=== PATIENT | male | born 1950 | race Caucasian/White ===

== ENCOUNTER 2018-08-11 09:52 | Inpatient (IN) ==
[2018-08-11] MEDS ORDERED: ONDANSETRON INJ 2 MG/ML 2 ML VIAL IV STA (10:17)
[2018-08-11] MEDS ORDERED: KETOROLAC TROMETHAMINE 15 MG/ML VIAL IV STA (10:17)
[2018-08-11] MEDS ORDERED: HYDROmorphone INJ 0.5 MG/0.5 ML SYR IV STA (10:17)
[2018-08-11] MEDS ORDERED: SODIUM CHLORIDE 0.9% 1000ML 2,000 ML IV SCH (10:30)
[2018-08-11 10:35] LABS: Basophils # (auto) 0.01 K/uL (0-0.2); Basophils % (auto) 0.1 %; Eosinophils # (auto) 0.02 K/uL (0-0.5); Eosinophils % (auto) 0.2 %; Hematocrit (blood only) 45.9 % (42-52); Immature Granulocytes # (auto) 0.04 K/uL (0.00-0.02); Immature Granulocytes % (auto) 0.3 %; Lymphocytes # (auto) 1.37 K/uL (1.2-3.4); Lymphocytes % (auto) 11.5 %; Mean Corpuscular Hgb Conc 34.9 g/dL (32-36); Mean Corpuscular Volume 92.4 fL (80-100); Monocytes # (auto) 0.51 K/uL (0.11-0.59); Monocytes % (auto) 4.3 %; Neutrophils # (auto) 9.92 K/uL (1.4-6.5); Neutrophils % (auto) 83.6 %; Platelet Count 286 K/uL (130-400); RDW Coefficient of Variation 13.4 % (11.5-14.5); RDW Standard Deviation 45.2 fL (36.4-46.3); Red Blood Count 4.97 M/uL (4.7-6.1); White Blood Count 11.87 K/uL (4.8-10.8)
[2018-08-11 10:52] LABS: Albumin Level 4.1 gm/dl (3.4-5.0); Calcium 9.9 mg/dl (8.5-10.1); Creatinine Clr Calc Pharmacy 83.2 ml/min; Est GFR (African American) 101.4; Est GFR (Non-African American) 87.5; Potassium 4.3 mmol/L (3.5-5.1)
[2018-08-11 10:55] LABS: Albumin Globulin Ratio 1.1 (0.9-2); Bilirubin,Total 0.7 mg/dl (0.2-1); Globulin 3.9 gm/dl (2.5-4.0)
--- NOTE | 2018-08-11 11:21 | CT Scan Report ---
CT abd pelvis wo con CT DOSE: 670.72 mGy.cm HISTORY: Pain. Flank pain. severe abd pain. faint back pain diff then previou TECHNIQUE: Multiaxial CT images of the abdomen and pelvis were performed without contrast. A dose lo wering technique was utilized adhering to the principles of ALARA. COMPARISON STUDY: 07/18/2018 FINDINGS: Lung bases are clear. Liver spleen and pancreas are unremarkable. Kidneys are improved in a ppearance compared to the prior study. Perinephric changes on the left procedure described are no longer present. Ventral hernia is unchanged. There is moderate fluid-filled distention of loops of small bowel within the low central abdomen and left lower quadrant. There is a smooth transition in diameter in the lef t central mid pelvis although an obstructing lesion is not seen. Bladder is midline. Postoperative ch anges consistent with a prior partial sigmoid resection is again noted. There is no evidence for abscess or collection. There is no significant colonic distention. IMPRESSION: 1. Partial distal small bowel obstruction with a transition point within the left central pelvis. 2. Etiology is unclear as there is no evidence for an obstructing lesion. 3. Urinary tracts are now considered normal and improved from the prior study. The above report was generated using voice recognition software. It may contain grammatical, syntax or spelling errors. Electronically signed by: Maurice Cordero M.D. 08/11/2018 11:20 AM
--- NOTE | 2018-08-11 13:01 | History & Physical Report ---
Date of Service August 11, 2018 Assessment & Plan (1) SBO (small bowel obstruction): Likely secondary to adhesions with no transition point identified on CT scan. Consult general surgery in case of need for procedure. He currently appears well without an NG tube. Nausea and pain is controlled with Zofran and Dilaudid, respectively. He has bowel sounds that are present. Continue bowel rest and supportive care. Continue IV fluids while patient is n.p.o. (2) COPD (chronic obstructive pulmonary disease): Stable, not in exacerbation. Actively smoking. Noted to be somewhat hypoxic on exam, however patient does not feel short of breath. Ordered continuous pulse ox the next 24 hours to monitor oxygen status. If he is consistently dropping less than 88 he may qualify for oxygen at home which can be set up prior to discharge. Otherwise, continue daily Spiriva and as needed albuterol. (3) Hyponatremia: Likely related to some hypovolemia secondary to vomiting overnight. Will repeat BMP in a.m. after IV fluids overnight. (4) Smoker: Encouraged to quit, nicotine patch provided. (5) DVT prophylaxis: SCDs to the thigh Full code Disposition-med/surg Ivis Robertson DO [facility] Hospitalist History of Present Illness Chief Complaint: vomiting Primary Care Provider: Pedro Luis Garcia MD 68-year-old man with a history of multiple abdominal surgeries and prior exploratory laparotomy in 2010 with lysis of adhesions presents with frequent vomiting and intolerance of p.o. overnight. He reports having pain that felt like a heartburn yesterday afternoon. He ate an orange and did not think much of it continued to have dinner later that night, and subsequently felt poorly going to bed. He had persistent abdominal pain and began vomiting persistently overnight. He reported some shaking chills and felt feverish, but prior to this onset of abdominal pain had felt normal and well. Review of systems is otherwise normal with no cough, diarrhea, blood per rectum, chest pain, shortness of breath. He was recently seen for a kidney stone which spontaneously passed a couple of weeks ago. He did report making lifestyle changes with respect to diet but is not on any fad diets at this time. He merely cuts out the large amount of sugar he was previously taking in. Allergies Allergy/AdvReac Type Severity Reaction Status Date / Time No Known Allergies Allergy Unknown Verified 08/11/18 10:14 Home Medications Home Medications Medication Instructions Recorded Confirmed Type garlic [garlic oil] 1,000 mg PO QAM 04/03/18 08/11/18 History lactobacillus combination no.4 1 cap PO QAM 04/03/18 08/11/18 History [Probiotic] multivitamin with minerals 1 tab PO QAM 04/03/18 08/11/18 History [Multiple Vitamin-Minerals] omega [id number]-fish oil [Fish Oil] 3,000 mg PO QAM 04/03/18 08/11/18 History s-adenosylmethionine [Michelet-E] 800 mg PO QAM 04/03/18 08/11/18 History vitamin B complex [B-Complex] 1 tab PO QAM 04/03/18 08/11/18 History albuterol sulfate [Ventolin HFA] 2 puff INHALATION Q4 PRN 07/18/18 08/11/18 History aspirin 325 mg PO 3XWK 07/18/18 08/11/18 History tiotropium bromide [Spiriva 2 puff INHALATION QAM 07/18/18 08/11/18 History Respimat] naproxen sodium 440 mg PO UD PRN 08/11/18 08/11/18 History Past Med/Surg History Medical History Dyslipidemia (Chronic) H/O alcohol dependence (Resolved) COPD (chronic obstructive pulmonary disease) (Chronic) Smoker (Chronic) Diverticulitis of large intestine with complication (Resolved) s/p sigmoid colon resection 2006 Kidney stone on left side (Resolved) Lumbar disc herniation (Resolved 08/19/14) Childhood asthma (Resolved) Hypokalemia (Resolved) Pneumothorax (Resolved) Surgical History H/O exploratory laparotomy (Resolved) s/p lysis of multiple adhesions (03/2011) H/O hernia repair (Resolved) R inguinal hernia repair 03/20/11 Previous back surgery (Resolved) History of colon surgery (Resolved) Family History Other Kidney stone Social History marital status: Current Living Situation: Spouse Feels Safe at Home: Yes Smoking Status: Current every day smoker Preferred Language: Czech Communication Ability: Effective Visual Impairment: No Limitations Hearing Ability: Normal Review of Systems At least ten systems were reviewed and negative except as indicated in HPI above. Physical Exam 2 Vital Signs (Past 24 Hours): Last Vital Signs Temp 36.4 C L 08/11/18 10:02 Pulse 80 08/11/18 12:45 Resp 18 08/11/18 12:45 BP 135/72 08/11/18 12:45 Pulse Ox 94 08/11/18 12:45 CONSTITUTIONAL: WNWD, vitals as above, generally well-appearing EYES: PERRL, normal conjuctivae, no scleral icterus ENT: MMM NECK: trachea midline, no lymphadenopathy RESPIRATORY: clear to auscultation bilaterally, no crackles, rales or wheezes, normal respiratory effort CARDIOVASCULAR: regular rate and rhythm, S1 and 2 heard without murmurs, gallops or rubs, no JVD, no peripheral edema, no carotid bruits GASTROINTESTINAL: hypoactive bowel sounds, soft, nontender,nondistended, lower midline (suprapubic) incisional hernia is present and reducible. MUSCULOSKELETAL: strength 5/5 throughout, head is normocephalic and atraumatic , neck supple SKIN: warm and dry NEUROLOGIC: No facial palsy, no dysarthria. CN 2-12 grossly intact, no sensory deficit, normal cognition, normal speech, no ogross focal deficits. PSYCHIATRIC: alert cooperative and oriented to person, place and time. Results & Data Laboratory Results Short CBC 08/11/18 Range/Units 10:25 WBC 11.87 H (4.8-10.8) K/uL Hgb 16.0 (14.0-18.0) g/dL Hct 45.9 (42-52) % Plt Count 286 (130-400) K/uL BMP 08/11/18 10:25 Sodium 129 L Potassium 4.3 Chloride 95 L Carbon Dioxide 30 BUN 16 Creatinine 0.91 Glucose 136 H Calcium 9.9 Liver Function 08/11/18 Range/Units 10:25 Total Bilirubin 0.7 (0.2-1) mg/dl AST 22 (15-37) U/L ALT 31 (12-78) U/L Alkaline Phosphatase 56 (45-117) U/L Albumin 4.1 (3.4-5.0) gm/dl Diagnostic Findings CT a/p wo contrast: IMPRESSION: 1. Partial distal small bowel obstruction with a transition point within the left central pelvis. 2. Etiology is unclear as there is no evidence for an obstructing lesion. 3. Urinary tracts are now considered normal and improved from the prior study. Medications Administered 2L NSS Zofran 4mg IV Toradol 10mg IV Dilaudid 1mg IV Code Status & VTE Plan Code Status Full Code VTE Prophylaxis Plan VTE Prophylaxis will be ordered: Yes Reason for no VTE drug order: Contraindicated (pending possible procedure in next day) Critical Care Time Critical Care Time: No
[2018-08-11] MEDS ORDERED: ACETAMINOPHEN 1000 MG/100 ML IV IV PRN (13:22)
[2018-08-11] MEDS: SODIUM CHLORIDE 0.9% 1000ML 1,000 ML IV SCH ×2 (14:12→21:02)
--- NOTE | 2018-08-11 15:57 | Emergency Department Note ---
Entered by Mariluz Stovall acting as a scribe for History of Present Illness General Chief complaint: Abdominal Pain Stated complaint: ABDOM. PAIN, NAUSEA Source: patient Mode of arrival: ambulatory Limitations: no limitations History of Present Illness Onset (ago): day(s) (last night) Location: abdomen Radiation: back Severity: severe and similar to prior episodes (same side as kidney stone.) Maximum Pain Intensity: 8 Relieved By: + other (naproxen) Exacerbated By: + movement Associated symptoms: + nausea/vomiting; no cough and no other (The patient denies urinary symptoms. ) The patient is a 68 year old male who presents to the ED with complaints of worsening abdominal pain with an onset of last night before dinner. He states that he took naproxen last night, which helped to alleviate the pain for a short amount of time. He notes that the pain is now radiating into his back. He describes this pain as severe and on the same side of his kidney stone. The patient states that twisting, turning, and bending exacerbates the pain. The patient complains of nausea and vomiting. The patient denies urinary symptoms and a new cough. He states that he was in the ED 2 weeks ago for kidney stones that have since resolved. He states that he has a history of a hernia operation , diverticulitis, and a bowel obstruction. Home Medications Home Medications Medication Instructions Recorded Confirmed Type garlic [garlic oil] 1,000 mg PO QAM 04/03/18 08/11/18 History lactobacillus combination no.4 1 cap PO QAM 04/03/18 08/11/18 History [Probiotic] multivitamin with minerals 1 tab PO QAM 04/03/18 08/11/18 History [Multiple Vitamin-Minerals] omega 0-fvh-epn-fish oil [Fish Oil] 3,000 mg PO QAM 04/03/18 08/11/18 History s-adenosylmethionine [Michelet-E] 800 mg PO QAM 04/03/18 08/11/18 History vitamin B complex [B-Complex] 1 tab PO QAM 04/03/18 08/11/18 History albuterol sulfate [Ventolin HFA] 2 puff INHALATION Q4 PRN 07/18/18 08/11/18 History aspirin 325 mg PO 3XWK 07/18/18 08/11/18 History tiotropium bromide [Spiriva 2 puff INHALATION QAM 07/18/18 08/11/18 History Respimat] naproxen sodium 440 mg PO UD PRN 08/11/18 08/11/18 History Allergies Allergy/AdvReac Type Severity Reaction Status Date / Time No Known Allergies Allergy Unknown Verified 08/11/18 10:14 Past Med/Surg History Medical History Dyslipidemia (Chronic) H/O alcohol dependence (Resolved) COPD (chronic obstructive pulmonary disease) (Chronic) Smoker (Chronic) Diverticulitis of large intestine with complication (Resolved) s/p sigmoid colon resection 2006 Kidney stone on left side (Resolved) Lumbar disc herniation (Resolved 08/19/14) Childhood asthma (Resolved) Hypokalemia (Resolved) Pneumothorax (Resolved) Surgical History H/O exploratory laparotomy (Resolved) s/p lysis of multiple adhesions (03/2011) H/O hernia repair (Resolved) R inguinal hernia repair 03/20/11 Previous back surgery (Resolved) History of colon surgery (Resolved) Family History Other Kidney stone Social History marital status: Current Living Situation: Spouse Other Information That Helps Us Care for You: No Feels Safe at Home: Yes Smoking Status: Current every day smoker Tobacco Type: cigarettes Cigarettes per Day: 10 Do You Dip or Chew Tobacco: No Second Hand Exposure: Yes Tobacco Cessation Education Requested by Patient: Yes Hx Alcohol Use: No Hx Substance Use: No Beliefs That Will Affect Care: None Communication Ability: Effective Warp Dyeing Vat Tender Required: No Review of Systems See HPI for pertinent positives & negatives. and A total of 10 systems reviewed and were otherwise negative Physical Exam Vital Signs Vital Signs - 24 hr 08/11/18 10:02 08/11/18 10:20 08/11/18 11:50 Temperature 36.4 C L Temperature Source Oral Sepsis Recent Fever Within 48 Hours No Sepsis New/Unexplained Change in Mental Status No Sepsis Action Taken by Nursing No Action Required Pulse Rate 97 H Pulse Rate [Right Finger] 88 Pulse Rhythm [Right Finger] Pulse Strength Normal Pulse Strength [Right Finger] Respiratory Rate 18 20 Respiratory Effort / Characteristics Non-Labored Spontaneous Non-Labored Spontaneous Respiratory Depth Normal Normal Respiratory Pattern Regular Regular Blood Pressure 172/96 H Blood Pressure [Left Arm] 139/78 Blood Pressure Mean 121 Blood Pressure Mean [Left Arm] 98 Blood Pressure Position Sitting Blood Pressure Position [Left Arm] Pulse Oximetry 95 91 Pulse Oximetry [Right Thumb] Oxygen Delivery Method Room Air Room Air Room Air Oxygen Delivery Method [Right Thumb] Oxygen Flow Rate Oxygen Flow Rate [Right Thumb] 08/11/18 12:45 08/11/18 13:15 08/11/18 15:23 Temperature 36.6 C 36.7 C Temperature Source Oral Oral Sepsis Recent Fever Within 48 Hours Sepsis New/Unexplained Change in Mental Status Sepsis Action Taken by Nursing Pulse Rate Pulse Rate [Right Finger] 80 82 86 Pulse Rhythm [Right Finger] Regular Pulse Strength Pulse Strength [Right Finger] Normal Respiratory Rate 18 16 18 Respiratory Effort / Characteristics Non-Labored Spontaneous Non-Labored Respiratory Depth Normal Normal Respiratory Pattern Regular Regular Blood Pressure Blood Pressure [Left Arm] 135/72 147/88 H 135/85 Blood Pressure Mean Blood Pressure Mean [Left Arm] 93 107 101 Blood Pressure Position Blood Pressure Position [Left Arm] Lying Pulse Oximetry 94 96 96 Pulse Oximetry [Right Thumb] 96 Oxygen Delivery Method Nasal Cannula Nasal Cannula Nasal Cannula Oxygen Delivery Method [Right Thumb] Nasal Cannula Oxygen Flow Rate 2 2 2 Oxygen Flow Rate [Right Thumb] 5 GENERAL: Sitting up in bed, mild distress, non toxic. EYE EXAM: normal conjunctiva. OROPHARYNX: no exudate, no erythema, lips, buccal mucosa, and tongue normal and mucous membranes are moist NECK: supple, no nuchal rigidity, no adenopathy, non-tender LUNGS: Clear to auscultation. Normal chest wall mechanics HEART: no murmurs, S1 normal and S2 normal ABDOMEN: abdomen soft, acutely tender throughout the left abdomen with multiple old abdominal incisions, normo-active bowel, sounds, no masses, no rebound or guarding. BACK: Back is symmetrical on inspection and there is no deformity, no midline tenderness, no CVA tenderness. SKIN: no rashes and no bruising UPPER EXTREMITIES: upper extremities are grossly normal. LOWER EXTREMITIES: No pitting edema. NEURO EXAM: Normal sensorium, cranial nerves II-XII grossly intact, normal speech, no gross weakness of arms, no gross weakness of legs. Course 1010: Past medical records reviewed. The patient was evaluated in room B10, and a complete history and physical examination were performed. 1135: I reviewed the patient's case with Marissa Lim. will evaluate the patient for further management. 1138: I updated the patient. Upon reevaluation, the patient is resting comfortably. 1139: I reviewed the patient's case with [facility]. Consultations Consultation #1: 1135: I reviewed the patient's case with Marissa Lim. will evaluate the patient for further management. Time: 11:35 Consultation #2: 1139: I reviewed the patient's case with [facility]. Time: 11:39 Administered Medications Sodium Chloride (Nss 1000ml) 1,000 mls @ 125 mls/hr IV .Q8H LISA Stop: 09/10/18 13:59 Last Infusion: 08/11/18 15:09 Dose: 125 mls/hr Admin: 08/11/18 14:12 Dose: 125 mls/hr Discontinued Medications Hydromorphone HCl (Dilaudid) 1 mg IV NOW STA Stop: 08/11/18 10:18 Last Admin: 08/11/18 10:31 Dose: 1 mg Sodium Chloride (Nss 1000ml) 2,000 mls @ 999 mls/hr IV .Q2H1M LISA Stop: 08/11/18 12:30 Last Infusion: 08/11/18 12:35 Dose: 0 mls/hr Admin: 08/11/18 10:32 Dose: 999 mls/hr Ketorolac Tromethamine (Toradol) 10 mg IV NOW STA Stop: 08/11/18 10:18 Last Admin: 08/11/18 10:31 Dose: 10 mg Ondansetron HCl (Zofran) 4 mg IV NOW STA Stop: 08/11/18 10:18 Last Admin: 08/11/18 10:31 Dose: 4 mg Medical Decision Making Differential Diagnosis Differential diagnosis: Etiologies such as appendicitis, diverticulitis, PUD, biliary pathology, UTI, pancreatitis, obstruction, mesenteric ischemia, aortic pathology, infections, inflammatory bowel disease, renal colic, as well as others were entertained. Medical Records Attestation: I reviewed the patient's medical records. Home Medications Current Medication List: was personally reviewed by me Laboratory Data Attestation: I reviewed the patient's lab results. Result diagrams: 08/11/18 10:25 08/11/18 10:25 Lab Results 08/11/18 08/11/18 Range/Units 10:25 10:25 WBC 11.87 H (4.8-10.8) K/uL RBC 4.97 (4.7-6.1) M/uL Hgb 16.0 (14.0-18.0) g/dL Hct 45.9 (42-52) % MCV 92.4 (80-100) fL MCH 32.2 (25-34) pg MCHC 34.9 (32-36) g/dL RDW Std Deviation 45.2 (36.4-46.3) fL RDW Coeff of Marti 13.4 (11.5-14.5) % Plt Count 286 (130-400) K/uL MPV 10.0 (7.4-10.4) fL Immature Gran % (Auto) 0.3 % Neut % (Auto) 83.6 % Lymph % (Auto) 11.5 % Lee % (Auto) 4.3 % Eos % (Auto) 0.2 % Baso % (Auto) 0.1 % Immature Gran # (Auto) 0.04 H (0.00-0.02) K/uL Neut # (Auto) 9.92 H (1.4-6.5) K/uL Lymph # (Auto) 1.37 (1.2-3.4) K/uL Lee # (Auto) 0.51 (0.11-0.59) K/uL Eos # (Auto) 0.02 (0-0.5) K/uL Baso # (Auto) 0.01 (0-0.2) K/uL Sodium 129 L (136-145) mmol/L Potassium 4.3 (3.5-5.1) mmol/L Chloride 95 L (98-107) mmol/L Carbon Dioxide 30 (21-32) mmol/L Anion Gap 4.0 (3-11) BUN 16 (7-18) mg/dl Creatinine 0.91 (0.6-1.4) mg/dl Est Cr Clr Drug Dosing 83.2 ml/min Est GFR ( Amer) 101.4 Est GFR (Non-Af Amer) 87.5 BUN/Creatinine Ratio 18.0 (10-20) Glucose 136 H (70-99) mg/dl Calcium 9.9 (8.5-10.1) mg/dl Total Bilirubin 0.7 (0.2-1) mg/dl AST 22 (15-37) U/L ALT 31 (12-78) U/L Alkaline Phosphatase 56 (45-117) U/L Total Protein 8.0 (6.4-8.2) gm/dl Albumin 4.1 (3.4-5.0) gm/dl Globulin 3.9 (2.5-4.0) gm/dl Albumin/Globulin Ratio 1.1 (0.9-2) Lipase 97 (73-393) U/L Imaging Data Radiologist's Impression: Radiology results as stated below per my review and the radiologist's interpretation: CT abd pelvis wo con CT DOSE: 670.72 mGy.cm HISTORY: Pain. Flank pain. severe abd pain. faint back pain diff then previou TECHNIQUE: Multiaxial CT images of the abdomen and pelvis were performed without contrast. A dose lowering technique was utilized adhering to the principles of ALARA. COMPARISON STUDY: 07/18/2018 FINDINGS: Lung bases are clear. Liver spleen and pancreas are unremarkable. Kidneys are improved in appearance compared to the prior study. Perinephric changes on the left procedure described are no longer present. Ventral hernia is unchanged. There is moderate fluid-filled distention of loops of small bowel within the low central abdomen and left lower quadrant. There is a smooth transition in diameter in the left central mid pelvis although an obstructing lesion is not seen. Bladder is midline. Postoperative changes consistent with a prior partial sigmoid resection is again noted. There is no evidence for abscess or collection. There is no significant colonic distention. IMPRESSION: 1. Partial distal small bowel obstruction with a transition point within the left central pelvis. 2. Etiology is unclear as there is no evidence for an obstructing lesion. 3. Urinary tracts are now considered normal and improved from the prior study. The above report was generated using voice recognition software. It may contain grammatical, syntax or spelling errors. Electronically signed by: Maurice Cordero M.D. 08/11/2018 11:20 AM Dictated: 08/11/18 1113 Transcribed: 08/11/18 1113 Blood Pressure Blood Pressure Findings: Elevated blood pressure Blood Pressure Disposition: further management by hospitalist MEET Narrative Patient is a 68-year-old male who presents the ER for abdominal pain rating to the back. Does have a history of previous colon resection secondary to diverticulitis and a hernia repair. He is acutely tender on the left abdomen. Vitals are fairly unremarkable. Labs show a mild leukocytosis of 11.8 thousand. No significant anemia. BMP with mild hyponatremia. LFTs bilirubin and lipase was unremarkable. CT abdomen pelvis confirms partial small bowel obstruction. Patient was given IV fluids, IV Zofran and IV Dilaudid. He did feel significant better. No vomiting while in the ER. Discussed with general surgery and the hospitalist. Patient was admitted for further workup. and were updated both at bedside. Impression & Plan SBO (small bowel obstruction), Hyponatremia Discharge Plan Visit Data *Final* Discharge Date/Time: 08/11/18 12:50 Chief Complaint: Abdominal Pain Stated Complaint: ABDOM. PAIN, NAUSEA ED Provider: Edward Allen Discharge Problem: SBO (small bowel obstruction), Hyponatremia Patient Disposition: Admitted As Inpatient Discharge Instructions Interventions: ED Discharge Assessment Last Done: 08/11/18 12:50 The scribe's documentation has been prepared under my direction and personally reviewed by me in its entirety. I confirm that the note above accurately reflects all work, treatment, procedures, and medical decision making performed by me.
[2018-08-11] MEDS: NICOTINE 21 MG/24 HR TDSY TD SCH (16:41)
[2018-08-11 16:48] LABS: Appearance Urine Clear (Clear); Bilirubin Urine Negative (Negative); Color Urine Yellow; Glucose Urine UA Negative (Negative); Ketones Urine 1+ (Negative); Leukocyte Esterase Urine Negative (Negative); Nitrite Urine Negative (Negative); Protein Urine Negative (Negative); Specific Gravity Urine 1.016 (1.000-1.030); Urobilinogen Urine Negative (Negative)
[2018-08-11] MEDS: HYDROmorphone INJ 0.5 MG/0.5 ML SYR IV PRN (21:02)
[2018-08-11] MEDS: ONDANSETRON INJ 2 MG/ML 2 ML VIAL IV PRN (21:02)
--- NOTE | 2018-08-11 21:38 | Surgery Consultation ---
Date of Consultation August 11, 2018 Assessment & Plan (1) SBO (small bowel obstruction): Patient has nausea vomiting has not had bowel movement or flatus. He had a CT scan demonstrating possible partial small bowel obstruction. I agree with conservative management keeping him n.p.o. He has not had nausea or vomiting since reaching the hospital so I agree with no NG tube for now. That may become necessary. We will continue to follow with you. He has no evidence of peritonitis at the present time. There is no need for immediate surgical intervention. History of Present Illness Reason for Consultation: Partial SBO Requesting Physician: Bashir Glynn MD Attending Physician: Bashir Glynn MD History of Present Illness I have been asked by Dr. Glynn to see this 68-year-old male who presented to the emergency room with abdominal pain, nausea and vomiting. The patient was well until yesterday morning. He stated he had some indigestion but he had only eaten cereal for breakfast. He then developed mild abdominal discomfort as the day progressed. He did not feel well when he went to bed and he awoke around 2: 00 in the morning with more severe abdominal pain and then had nausea and vomiting. The vomiting persisted every hour through the night he presented to the emergency room. He had some feeling of chills and being cold but he denies fever. He does feel as if his abdomen is bloated he has a history of abdominal surgery. He has good lysis of adhesions for bowel obstruction back in 2010. He had what he described as a good bowel movement yesterday morning but has not had one since. He has not been passing flatus. He underwent a CT scan of the abdomen and pelvis. It demonstrated a partial small bowel obstruction with possible transition point towards the pelvis. He was admitted earlier this month for a kidney stone. That discomfort has resolved. CT scan showed improvement of the appearance of the tract. Allergies Allergy/AdvReac Type Severity Reaction Status Date / Time No Known Allergies Allergy Unknown Verified 08/11/18 10:14 Home Medications Home Medications Medication Instructions Recorded Confirmed Type garlic [garlic oil] 1,000 mg PO QAM 04/03/18 08/11/18 History lactobacillus combination no.4 1 cap PO QAM 04/03/18 08/11/18 History [Probiotic] multivitamin with minerals 1 tab PO QAM 04/03/18 08/11/18 History [Multiple Vitamin-Minerals] omega [id number]-fish oil [Fish Oil] 3,000 mg PO QAM 04/03/18 08/11/18 History s-adenosylmethionine [Michelet-E] 800 mg PO QAM 04/03/18 08/11/18 History vitamin B complex [B-Complex] 1 tab PO QAM 04/03/18 08/11/18 History albuterol sulfate [Ventolin HFA] 2 puff INHALATION Q4 PRN 07/18/18 08/11/18 History aspirin 325 mg PO [id number] 07/18/18 08/11/18 History tiotropium bromide [Spiriva 2 puff INHALATION QAM 07/18/18 08/11/18 History Respimat] naproxen sodium 440 mg PO UD PRN 08/11/18 08/11/18 History Patient History Medical History Dyslipidemia (Chronic) H/O alcohol dependence (Resolved) COPD (chronic obstructive pulmonary disease) (Chronic) Smoker (Chronic) Diverticulitis of large intestine with complication (Resolved) s/p sigmoid colon resection 2006 Kidney stone on left side (Resolved) Lumbar disc herniation (Resolved 08/19/14) Childhood asthma (Resolved) Hypokalemia (Resolved) Pneumothorax (Resolved) Surgical History H/O exploratory laparotomy (Resolved) s/p lysis of multiple adhesions (03/2011) H/O hernia repair (Resolved) R inguinal hernia repair 03/20/11 Previous back surgery (Resolved) History of colon surgery (Resolved) Family History Other Kidney stone Social History marital status: Current Living Situation: Spouse Other Information That Helps Us Care for You: No Feels Safe at Home: Yes Smoking Status: Current every day smoker Tobacco Type: cigarettes Cigarettes per Day: 10 Do You Dip or Chew Tobacco: No Second Hand Exposure: Yes Tobacco Cessation Education Requested by Patient: Yes Hx Alcohol Use: No Hx Substance Use: No Beliefs That Will Affect Care: None Communication Ability: Effective Dining Car Hop Required: No Review of Systems As per HPI with all others negative Constitutional: as per Subjective / HPI Physical Exam 2 Vital Signs (Past 24 Hours): Last Vital Signs Temp 36.7 C 08/11/18 15:23 Pulse 86 08/11/18 15:23 Resp 18 08/11/18 15:23 BP 135/85 08/11/18 15:23 Pulse Ox 96 08/11/18 15:23 Constitutional: well developed; no acute distress Neck: trachea midline, no thyromegaly Respiratory: Auscultation: + rhonchi (Scattered) and + wheezes (Scattered end expiratory) Cardiovascular: Rate/Rhythm: regular rate and regular rhythm Gastrointestinal (Abdomen): Inspection/Auscultation: + abdomen distended (Mild ) and + hypoactive bowel sounds Percussion/Palpation: + abdomen tender (Mild throughout) Skin: no rashes, warm and dry Lymphatic: no cervical lymphadenopathy Results & Data Laboratory Results 08/11/18 08/11/18 08/11/18 Range/Units 16:35 10:25 10:25 WBC 11.87 H (4.8-10.8) K/uL RBC 4.97 (4.7-6.1) M/uL Hgb 16.0 (14.0-18.0) g/dL Hct 45.9 (42-52) % MCV 92.4 (80-100) fL MCH 32.2 (25-34) pg MCHC 34.9 (32-36) g/dL RDW Std Deviation 45.2 (36.4-46.3) fL RDW Coeff of Marti 13.4 (11.5-14.5) % Plt Count 286 (130-400) K/uL MPV 10.0 (7.4-10.4) fL Immature Gran % (Auto) 0.3 % Neut % (Auto) 83.6 % Lymph % (Auto) 11.5 % [place] % (Auto) 4.3 % Eos % (Auto) 0.2 % Baso % (Auto) 0.1 % Immature Gran # (Auto) 0.04 H (0.00-0.02) K/uL Neut # (Auto) 9.92 H (1.4-6.5) K/uL Lymph # (Auto) 1.37 (1.2-3.4) K/uL [place] # (Auto) 0.51 (0.11-0.59) K/uL Eos # (Auto) 0.02 (0-0.5) K/uL Baso # (Auto) 0.01 (0-0.2) K/uL Sodium 129 L (136-145) mmol/L Potassium 4.3 (3.5-5.1) mmol/L Chloride 95 L (98-107) mmol/L Carbon Dioxide 30 (21-32) mmol/L Anion Gap 4.0 (3-11) BUN 16 (7-18) mg/dl Creatinine 0.91 (0.6-1.4) mg/dl Est Cr Clr Drug Dosing 83.2 ml/min Est GFR ( Amer) 101.4 Est GFR (Non-Af Amer) 87.5 BUN/Creatinine Ratio 18.0 (10-20) Glucose 136 H (70-99) mg/dl Calcium 9.9 (8.5-10.1) mg/dl Total Bilirubin 0.7 (0.2-1) mg/dl AST 22 (15-37) U/L ALT 31 (12-78) U/L Alkaline Phosphatase 56 (45-117) U/L Total Protein 8.0 (6.4-8.2) gm/dl Albumin 4.1 (3.4-5.0) gm/dl Globulin 3.9 (2.5-4.0) gm/dl Albumin/Globulin Ratio 1.1 (0.9-2) Lipase 97 (73-393) U/L Urine Color Yellow Urine Appearance Clear (Clear) Urine pH 6.0 (4.5-7.5) Ur Specific [place] 1.016 (1.000-1.030) Urine Protein Negative (Negative) Urine Glucose (UA) Negative (Negative) Urine Ketones 1+ H (Negative) Urine Blood Negative (Negative) Urine Nitrite Negative (Negative) Urine Bilirubin Negative (Negative) Urine Urobilinogen Negative (Negative) Ur Leukocyte Esterase Negative (Negative) Diagnostic Findings CT abd pelvis wo con CT DOSE: 670.72 mGy.cm HISTORY: Pain. Flank pain. severe abd pain. faint back pain diff then previou TECHNIQUE: Multiaxial CT images of the abdomen and pelvis were performed without contrast. A dose lowering technique was utilized adhering to the principles of ALARA. COMPARISON STUDY: 07/18/2018 FINDINGS: Lung bases are clear. Liver spleen and pancreas are unremarkable. Kidneys are improved in appearance compared to the prior study. Perinephric changes on the left procedure described are no longer present. Ventral hernia is unchanged. There is moderate fluid-filled distention of loops of small bowel within the low central abdomen and left lower quadrant. There is a smooth transition in diameter in the left central mid pelvis although an obstructing lesion is not seen. Bladder is midline. Postoperative changes consistent with a prior partial sigmoid resection is again noted. There is no evidence for abscess or collection. There is no significant colonic distention. IMPRESSION: 1. Partial distal small bowel obstruction with a transition point within the left central pelvis. 2. Etiology is unclear as there is no evidence for an obstructing lesion. 3. Urinary tracts are now considered normal and improved from the prior study.
[2018-08-12] MEDS ORDERED: Nursing to Pharmacy Communication ONE (00:50)
[2018-08-12] MEDS: SODIUM CHLORIDE 0.9% 1000ML 1,000 ML IV SCH (04:38)
[2018-08-12] MEDS: ALBUTEROL HFA 8 GM INHALER INH PRN ×3 (08:00→21:23)
[2018-08-12 08:26] LABS: Hematocrit (blood only) 43.7 % (42-52); Mean Corpuscular Hgb Conc 34.3 g/dL (32-36); Mean Corpuscular Volume 94.2 fL (80-100); Platelet Count 269 K/uL (130-400); RDW Coefficient of Variation 13.6 % (11.5-14.5); RDW Standard Deviation 46.8 fL (36.4-46.3); Red Blood Count 4.64 M/uL (4.7-6.1); White Blood Count 9.31 K/uL (4.8-10.8)
[2018-08-12] MEDS: ONDANSETRON INJ 2 MG/ML 2 ML VIAL IV PRN ×3 (08:38→21:28)
[2018-08-12] MEDS: HYDROmorphone INJ 0.5 MG/0.5 ML SYR IV PRN ×3 (08:38→21:28)
[2018-08-12 09:01] LABS: BUN Creatinine Ratio 14.7 (10-20); Calcium 9.3 mg/dl (8.5-10.1); Creatinine Clr Calc Pharmacy 84.9 ml/min; Est GFR (African American) 102.8; Est GFR (Non-African American) 88.7
[2018-08-12] MEDS: TIOTROPIUM BROMIDE 5 PUFF/90 MCG INH INH SCH (09:08)
[2018-08-12] MEDS: NICOTINE 21 MG/24 HR TDSY TD SCH (09:50)
--- NOTE | 2018-08-12 10:15 | Surgery Progress Note ---
Date of Service August 12, 2018 Assessment & Plan (1) SBO (small bowel obstruction): afebrile, vitals stable, leukocytosis resolved + flatus but no bowel movement abdomen still mildly distended, soft, tender in RLQ, no peritonitis + nausea but no vomiting Plan: continue conservative treatment with NPO, Bowel rest, IV pain medication as needed, IV zofran as needed, NGT if any emesis. He has no evidence of peritonitis at the present time. There is no need for immediate surgical intervention. Encouraged OOB to chair and ambulation to increase GI motility Will evaluate later today Subjective feeling better today small amounts of gas that started last night, no bowel movement yet still feels bloated + Nausea relieved with medication, no vomiting Walking hallways Physical Exam 2 Vital Signs (Past 24 Hours): Last Vital Signs Temp 36.6 C 08/12/18 06:58 Pulse 86 08/12/18 06:58 Resp 16 08/12/18 06:58 BP 123/80 08/12/18 06:58 Pulse Ox 93 08/12/18 06:58 Constitutional: WD/WN, vitals as above no acute distress Respiratory: normal respiratory effort, lungs clear to auscultation Cardiovascular: RRR, no murmur, no edema Gastrointestinal (Abdomen): Inspection/Auscultation: + abdomen distended (mild ) and + hypoactive bowel sounds Percussion/Palpation: + abdomen tender (RLQ ) and abdomen soft; no guarding and abdomen not rigid Skin: no rashes, warm and dry Results & Data Laboratory Results 08/12/18 08/12/18 08/11/18 Range/Units 08:04 08:04 16:35 WBC 9.31 (4.8-10.8) K/uL RBC 4.64 L (4.7-6.1) M/uL Hgb 15.0 (14.0-18.0) g/dL Hct 43.7 (42-52) % MCV 94.2 (80-100) fL MCH 32.3 (25-34) pg MCHC 34.3 (32-36) g/dL RDW Std Deviation 46.8 H (36.4-46.3) fL RDW Coeff of Marti 13.6 (11.5-14.5) % Plt Count 269 (130-400) K/uL MPV 10.0 (7.4-10.4) fL Sodium 133 L (136-145) mmol/L Potassium 4.0 (3.5-5.1) mmol/L Chloride 99 (98-107) mmol/L Carbon Dioxide 27 (21-32) mmol/L Anion Gap 7.0 (3-11) BUN 13 (7-18) mg/dl Creatinine 0.90 (0.6-1.4) mg/dl Est Cr Clr Drug Dosing 84.9 ml/min Est GFR ( Amer) 102.8 Est GFR (Non-Af Amer) 88.7 BUN/Creatinine Ratio 14.7 (10-20) Glucose 90 (70-99) mg/dl Calcium 9.3 (8.5-10.1) mg/dl Total Bilirubin (0.2-1) mg/dl AST (15-37) U/L ALT (12-78) U/L Alkaline Phosphatase (45-117) U/L Total Protein (6.4-8.2) gm/dl Albumin (3.4-5.0) gm/dl Globulin (2.5-4.0) gm/dl Albumin/Globulin Ratio (0.9-2) Lipase (73-393) U/L Urine Color Yellow Urine Appearance Clear (Clear) Urine pH 6.0 (4.5-7.5) Ur Specific [place] 1.016 (1.000-1.030) Urine Protein Negative (Negative) Urine Glucose (UA) Negative (Negative) Urine Ketones 1+ H (Negative) Urine Blood Negative (Negative) Urine Nitrite Negative (Negative) Urine Bilirubin Negative (Negative) Urine Urobilinogen Negative (Negative) Ur Leukocyte Esterase Negative (Negative) 08/11/18 Range/Units 10:25 WBC (4.8-10.8) K/uL RBC (4.7-6.1) M/uL Hgb (14.0-18.0) g/dL Hct (42-52) % MCV (80-100) fL MCH (25-34) pg MCHC (32-36) g/dL RDW Std Deviation (36.4-46.3) fL RDW Coeff of Marti (11.5-14.5) % Plt Count (130-400) K/uL MPV (7.4-10.4) fL Sodium 129 L (136-145) mmol/L Potassium 4.3 (3.5-5.1) mmol/L Chloride 95 L (98-107) mmol/L Carbon Dioxide 30 (21-32) mmol/L Anion Gap 4.0 (3-11) BUN 16 (7-18) mg/dl Creatinine 0.91 (0.6-1.4) mg/dl Est Cr Clr Drug Dosing 83.2 ml/min Est GFR ( Amer) 101.4 Est GFR (Non-Af Amer) 87.5 BUN/Creatinine Ratio 18.0 (10-20) Glucose 136 H (70-99) mg/dl Calcium 9.9 (8.5-10.1) mg/dl Total Bilirubin 0.7 (0.2-1) mg/dl AST 22 (15-37) U/L ALT 31 (12-78) U/L Alkaline Phosphatase 56 (45-117) U/L Total Protein 8.0 (6.4-8.2) gm/dl Albumin 4.1 (3.4-5.0) gm/dl Globulin 3.9 (2.5-4.0) gm/dl Albumin/Globulin Ratio 1.1 (0.9-2) Lipase 97 (73-393) U/L Urine Color Urine Appearance (Clear) Urine pH (4.5-7.5) Ur Specific [place] (1.000-1.030) Urine Protein (Negative) Urine Glucose (UA) (Negative) Urine Ketones (Negative) Urine Blood (Negative) Urine Nitrite (Negative) Urine Bilirubin (Negative) Urine Urobilinogen (Negative) Ur Leukocyte Esterase (Negative)
--- NOTE | 2018-08-12 19:34 | Hospitalist Progress Note ---
Date of Service August 12, 2018 Assessment & Plan (1) SBO (small bowel obstruction): Likely secondary to adhesions with no transition point identified on CT scan. - Nausea and pain is controlled with Zofran and Dilaudid, respectively - Continue bowel rest and supportive care -will give D5 1/2 normal IV fluids for glucose while generally NPO -advance diet when return of bowel function, may have ice chips -general surgery consult continues to follow the patient (2) COPD (chronic obstructive pulmonary disease): Stable, not in exacerbation. Actively smoker -continue daily Spiriva and as needed albuterol. (3) Hyponatremia: resolving after IV fluids (4) Smoker: Encouraged to quit, nicotine patch provided. (5) DVT prophylaxis: SCDs to the thigh Full code Disposition-med/surg Subjective Patient seen and examined earlier today at the time , he reports passing flatus but no bowel movements reported abdominal pain better. denied vomiting. denied chest pain or shortness of breath Physical Exam 2 Vital Signs (Past 24 Hours): Last Vital Signs Temp 36.5 C 08/12/18 15:16 Pulse 75 08/12/18 15:16 Resp 16 08/12/18 15:16 BP 129/79 08/12/18 15:16 Pulse Ox 94 08/12/18 15:16 Constitutional: WD/WN, vitals as above Eyes: PERRL, conjunctivae normal, anicteric sclerae EOM intact bilaterally ENMT: external ear and nose normal, oropharynx normal Respiratory: normal respiratory effort, lungs clear to auscultation Cardiovascular: RRR, no murmur, no edema Gastrointestinal (Abdomen): normal bowel sounds, soft, nontender, no hepatosplenomegaly Musculoskeletal: no cyanosis or clubbing, extremities motor strength 5/5 Head/Neck/Chest: normocephalic and head atraumatic Neurologic: PERRL, EOMI, accommodation nl, no face palsy, no dysarthria CN' s II-XI intact bilaterally Psychiatric: A+Ox3, euthymic affect
[2018-08-12] MEDS: D5W AND 1/2NSS 1,000 ML IV SCH (21:23)
[2018-08-13] MEDS: NICOTINE 21 MG/24 HR TDSY TD SCH (07:26)
[2018-08-13] MEDS: TIOTROPIUM BROMIDE 5 PUFF/90 MCG INH INH SCH (07:27)
[2018-08-13] MEDS: ONDANSETRON INJ 2 MG/ML 2 ML VIAL IV PRN ×2 (07:31→22:23)
[2018-08-13] MEDS: HYDROmorphone INJ 0.5 MG/0.5 ML SYR IV PRN ×2 (07:31→22:23)
[2018-08-13] MEDS: ALBUTEROL HFA 8 GM INHALER INH PRN (07:36)
--- NOTE | 2018-08-13 07:47 | Surgery Progress Note ---
Date of Service August 13, 2018 Assessment & Plan (1) SBO (small bowel obstruction): Small bowel obstruction does not seem to have resolved. NG tube no longer in place but no nausea or vomiting Palliative care is involved We will need to decide whether surgical intervention at any point is an option keeping in mind that she is at high risk. Lipase is elevated and some component of pancreatitis would also explain her upper abdominal discomfort Might also add an ileus component to her picture although the CT seem to indicate a transition point Present on Admission?: Yes Subjective Patient denies flatus or bowel movement NG tube came out last night and there was difficulty replacing it She denies nausea and vomiting She is having less pain Physical Exam 2 Vital Signs (Past 24 Hours): Last Vital Signs Temp 36.6 C 08/12/18 23:03 Pulse 82 08/12/18 23:03 Resp 16 08/12/18 23:03 BP 126/72 08/12/18 23:03 Pulse Ox 92 08/12/18 23:03 Gastrointestinal (Abdomen): Inspection/Auscultation: + abdomen distended Percussion/Palpation: + abdomen tender (Mild) and abdomen soft Results & Data Laboratory Results 08/12/18 08/12/18 Range/Units 08:04 08:04 WBC 9.31 (4.8-10.8) K/uL RBC 4.64 L (4.7-6.1) M/uL Hgb 15.0 (14.0-18.0) g/dL Hct 43.7 (42-52) % MCV 94.2 (80-100) fL MCH 32.3 (25-34) pg MCHC 34.3 (32-36) g/dL RDW Std Deviation 46.8 H (36.4-46.3) fL RDW Coeff of Marti 13.6 (11.5-14.5) % Plt Count 269 (130-400) K/uL MPV 10.0 (7.4-10.4) fL Sodium 133 L (136-145) mmol/L Potassium 4.0 (3.5-5.1) mmol/L Chloride 99 (98-107) mmol/L Carbon Dioxide 27 (21-32) mmol/L Anion Gap 7.0 (3-11) BUN 13 (7-18) mg/dl Creatinine 0.90 (0.6-1.4) mg/dl Est Cr Clr Drug Dosing 84.9 ml/min Est GFR ( Amer) 102.8 Est GFR (Non-Af Amer) 88.7 BUN/Creatinine Ratio 14.7 (10-20) Glucose 90 (70-99) mg/dl Calcium 9.3 (8.5-10.1) mg/dl
--- NOTE | 2018-08-13 08:03 | Surgery Progress Note ---
Date of Service August 13, 2018 Assessment & Plan (1) SBO (small bowel obstruction): PSBO- slowly resolving -vitals stable, afebrile, no leukocytosis - + flatus but no bowel movement yet - Abdomen is soft, nondistended, pain much improved - no n/v Plan: Advance diet to clear liquids Continue pain management as needed, limit narcotics Continue to encourage ambulation and OOB to chair Continue medical management Dr. Dorsey has seen and examined pt, agrees with above Subjective passing gas, no bowel movement yet no nausea or vomiting some abdominal pain but not as severe as when he presented to hospital ambulating [address] Physical Exam 2 Vital Signs (Past 24 Hours): Last Vital Signs Temp 36.5 C 08/13/18 07:27 Pulse 83 08/13/18 07:27 Resp 16 08/13/18 07:27 BP 144/89 H 08/13/18 07:27 Pulse Ox 92 08/13/18 07:27 Constitutional: WD/WN, vitals as above no acute distress Respiratory: normal respiratory effort; no respiratory distress Gastrointestinal (Abdomen): Inspection/Auscultation: abdomen normal to inspection; abdomen not distended Percussion/Palpation: + abdomen tender ( mild tenderness generalized, much improved) and abdomen soft; no guarding and abdomen not rigid Skin: no rashes, warm and dry Psychiatric: A+Ox3, euthymic affect Results & Data Laboratory Results 08/12/18 08/12/18 Range/Units 08:04 08:04 WBC 9.31 (4.8-10.8) K/uL RBC 4.64 L (4.7-6.1) M/uL Hgb 15.0 (14.0-18.0) g/dL Hct 43.7 (42-52) % MCV 94.2 (80-100) fL MCH 32.3 (25-34) pg MCHC 34.3 (32-36) g/dL RDW Std Deviation 46.8 H (36.4-46.3) fL RDW Coeff of Marti 13.6 (11.5-14.5) % Plt Count 269 (130-400) K/uL MPV 10.0 (7.4-10.4) fL Sodium 133 L (136-145) mmol/L Potassium 4.0 (3.5-5.1) mmol/L Chloride 99 (98-107) mmol/L Carbon Dioxide 27 (21-32) mmol/L Anion Gap 7.0 (3-11) BUN 13 (7-18) mg/dl Creatinine 0.90 (0.6-1.4) mg/dl Est Cr Clr Drug Dosing 84.9 ml/min Est GFR ( Amer) 102.8 Est GFR (Non-Af Amer) 88.7 BUN/Creatinine Ratio 14.7 (10-20) Glucose 90 (70-99) mg/dl Calcium 9.3 (8.5-10.1) mg/dl
[2018-08-13 09:00] LABS: BUN Creatinine Ratio 14.2 (10-20); Calcium 9.4 mg/dl (8.5-10.1); Est GFR (African American) 92.7; Potassium 4.4 mmol/L (3.5-5.1)
--- NOTE | 2018-08-13 17:12 | Hospitalist Progress Note ---
Date of Service August 13, 2018 Assessment & Plan (1) SBO (small bowel obstruction): Likely secondary to adhesions with no transition point identified on CT scan. - diet advanced to clears today monitor closely Gen Surg consulted- appreciate the input (2) COPD (chronic obstructive pulmonary disease): Stable, not in exacerbation. Actively smoker -continue daily Spiriva and as needed albuterol. (3) Hyponatremia: resolving after IV fluids (4) Smoker: Encouraged to quit, nicotine patch provided. (5) DVT prophylaxis: SCDs to the thigh Full code Disposition-med/surg Subjective ff up for ileus seen resting in bed, comfortable states he feels improved today (+) small BMS tolerating clear liquids no abdominal pain, mild nausea earlier- resolved denies other symptom Physical Exam 2 Vital Signs (Past 24 Hours): Last Vital Signs Temp 36.6 C 08/13/18 15:07 Pulse 75 08/13/18 15:07 Resp 16 08/13/18 15:07 BP 148/98 H 08/13/18 15:07 Pulse Ox 93 08/13/18 15:07 Physical Exam: General- oriented x 3, not in distress, speaks in sentences with no effort or accessory muscle use Eyes- anicteric Neck- no JVD Lungs- clear breath sounds bilaterally, no rales/wheezes Heart- normal rate, regular rhythm; no murmurs Abdomen- normal bowel sounds, nondistended, soft, nontender Extremities- no pretibial edema, no calf tenderness Neuro- alert, oriented x 3; no gross focal neurologic deficits Skin- warm & dry Results & Data Laboratory Results Laboratory Results - last 24 hr 08/13/18 08:16 Sodium 132 L Potassium 4.4 Chloride 99 Carbon Dioxide 28 Anion Gap 6.0 BUN 14 Creatinine 0.98 Est Cr Clr Drug Dosing 78.0 Est GFR ( Amer) 92.7 Est GFR (Non-Af Amer) 80.0 BUN/Creatinine Ratio 14.2 Glucose 87 Calcium 9.4 Specimen Hemolysis
[2018-08-13] MEDS: D5W AND NSS 1,000 ML IV SCH (17:48)
[2018-08-14] MEDS ORDERED: BISACODYL 10 MG SUPP PR STA (07:34)
--- NOTE | 2018-08-14 07:37 | Surgery Progress Note ---
Date of Service August 14, 2018 Assessment & Plan (1) SBO (small bowel obstruction): PSBO- slowly resolving -vitals stable, afebrile, no leukocytosis - + flatus but no bowel movement yet - Abdomen is soft, nondistended, pain much improved - no n/v Plan: Continue clear liquids Will try Dulcolax suppository Continue pain management as needed, limit narcotics Continue to encourage ambulation and OOB to chair Continue medical management Dr. Dorsey has seen and examined pt, agrees with above Subjective still passing gas but no bowel movement some pain still present but much improved, had pain medication last night tolerated clear liquids without nausea or vomiting ambulating hallways multiple times a day Physical Exam 2 Vital Signs (Past 24 Hours): Last Vital Signs Temp 36.8 C 08/13/18 23:25 Pulse 73 08/13/18 23:25 Resp 16 08/13/18 23:25 BP 121/75 08/13/18 23:25 Pulse Ox 96 08/13/18 23:25 Constitutional: WD/WN, vitals as above no acute distress Respiratory: normal respiratory effort; no respiratory distress Gastrointestinal (Abdomen): Inspection/Auscultation: abdomen normal to inspection and + hypoactive bowel sounds; abdomen not distended Percussion/ Palpation: + abdomen tender (mild tenderness generalized, much improved) and abdomen soft; no guarding and abdomen not rigid Skin: no rashes, warm and dry Psychiatric: A+Ox3, euthymic affect
[2018-08-14] MEDS: NICOTINE 21 MG/24 HR TDSY TD SCH (07:47)
[2018-08-14] MEDS: TIOTROPIUM BROMIDE 5 PUFF/90 MCG INH INH SCH (07:48)
[2018-08-14] MEDS: D5W AND NSS 1,000 ML IV SCH (10:59)
[2018-08-14] MEDS ORDERED: MAGNESIUM HYDROXIDE SUSP 30 ML UDC PO PRN (11:02)
[2018-08-14] MEDS: DOCUSATE SODIUM/SENNA 50/8.6MG TAB PO SCH (11:18)
--- NOTE | 2018-08-14 15:43 | Hospitalist Progress Note ---
Date of Service August 14, 2018 Assessment & Plan (1) SBO (small bowel obstruction): Likely secondary to adhesions with no transition point identified on CT scan. - tolerating clear liquids laxatives ordered , would like to see normal BM continue IV fluids monitor closely Gen Surg consulted- appreciate the input (2) COPD (chronic obstructive pulmonary disease): Stable, not in exacerbation. Actively smoker -continue daily Spiriva and as needed albuterol. (3) Hyponatremia: resolving after IV fluids (4) Smoker: Encouraged to quit, nicotine patch provided. (5) DVT prophylaxis: SCDs to the thigh Full code Disposition anticipate to return home when medically stable Subjective ff up for ileus resting , comfortable no nausea, abdominal pain (+) flatus and very small BM today after given suppository ambulating with no problems denies other symptoms Physical Exam 2 Vital Signs (Past 24 Hours): Last Vital Signs Temp 36.8 C 08/14/18 15:14 Pulse 76 08/14/18 15:14 Resp 17 08/14/18 15:14 BP 136/93 08/14/18 15:14 Pulse Ox 94 08/14/18 15:14 Physical Exam: General- oriented x 3, not in distress, speaks in sentences with no effort or accessory muscle use Eyes- anicteric Neck- no JVD Lungs- clear BS BL no rales/wheezes Heart- normal rate, regular rhythm; no murmurs Abdomen- normal bowel sounds, nondistended, soft, nontender Extremities- no pretibial edema, no calf tenderness Neuro- alert, oriented x 3; no gross focal neurologic deficits Skin- warm & dry
[2018-08-14] MEDS: ALBUTEROL HFA 8 GM INHALER INH PRN (20:07)
[2018-08-14] MEDS: D5W AND 1/2NSS 1,000 ML IV SCH (23:29)
[2018-08-15] MEDS: D5W AND NSS 1,000 ML IV SCH (02:53)
--- NOTE | 2018-08-15 07:44 | Surgery Progress Note ---
Date of Service August 15, 2018 Assessment & Plan (1) SBO (small bowel obstruction): SBO resolved Moving bowels Abdomen benign Advance to full liquid diet Subjective Denies pain Had 3 BM's Passing flatus Tolerated clear liquid diet Physical Exam 2 Vital Signs (Past 24 Hours): Last Vital Signs Temp 36.7 C 08/14/18 23:18 Pulse 68 08/14/18 23:18 Resp 14 08/14/18 23:18 BP 145/88 H 08/14/18 23:18 Pulse Ox 94 08/14/18 23:18 Gastrointestinal (Abdomen): Inspection/Auscultation: normal bowel sounds; abdomen not distended Percussion/Palpation: abdomen soft; abdomen nontender
[2018-08-15] MEDS: DOCUSATE SODIUM/SENNA 50/8.6MG TAB PO SCH (08:06)
[2018-08-15] MEDS: NICOTINE 21 MG/24 HR TDSY TD SCH (08:06)
[2018-08-15] MEDS: TIOTROPIUM BROMIDE 5 PUFF/90 MCG INH INH SCH (08:07)
[2018-08-15] MEDS: ALBUTEROL HFA 8 GM INHALER INH PRN (11:45)
--- NOTE | 2018-08-15 14:21 | Hospitalist Progress Note ---
Date of Service August 15, 2018 Assessment & Plan (1) SBO (small bowel obstruction): Likely secondary to adhesions with no transition point identified on CT scan. - diet advanced to soft, tolerated well (+) [facility] Gen Surg consulted- discussed with Dr. Dorsey patient is cleared for discharge today - ff up with PCP Dr. Garcia 08/20/18 (2) COPD (chronic obstructive pulmonary disease): Stable, not in exacerbation. Actively smoker -continue daily Spiriva and as needed albuterol. (3) Hyponatremia: resolved (4) Smoker: Encouraged to quit, nicotine patch provided. (5) DVT prophylaxis: SCDs to the thigh Full code Disposition d/c home ff up with PCP Dr. Garcia 08/20/18 Subjective ff up for ileus resting in bed, comfortable states he tolerated breakfast well also having BMs no nausea no other symptoms diet advanced to soft diet for lunch tolerated well denies symptoms states he is ready and would like to be discharged today Physical Exam 2 Vital Signs (Past 24 Hours): Last Vital Signs Temp 36.7 C 08/14/18 23:18 Pulse 68 08/14/18 23:18 Resp 14 08/14/18 23:18 BP 145/88 H 08/14/18 23:18 Pulse Ox 94 08/14/18 23:18 Physical Exam: General- oriented x 3, not in distress, speaks in sentences with no effort or accessory muscle use Eyes- anicteric Neck- no JVD Lungs- clear BS bilaterally, no rales/wheezes Heart- normal rate, regular rhythm; no murmurs Abdomen- normal bowel sounds, nondistended, soft, nontender Extremities- no pretibial edema, no calf tenderness Neuro- alert, oriented x 3; no gross focal neurologic deficits Skin- warm & dry
--- NOTE | 2018-08-15 14:25 | Discharge Summary ---
Date of Service August 15, 2018 Admission HPI Per Admitting Provider 68-year-old man with a history of multiple abdominal surgeries and prior exploratory laparotomy in 2010 with lysis of adhesions presents with frequent vomiting and intolerance of p.o. overnight. He reports having pain that felt like a heartburn yesterday afternoon. He ate an orange and did not think much of it continued to have dinner later that night, and subsequently felt poorly going to bed. He had persistent abdominal pain and began vomiting persistently overnight. He reported some shaking chills and felt feverish, but prior to this onset of abdominal pain had felt normal and well. Review of systems is otherwise normal with no cough, diarrhea, blood per rectum, chest pain, shortness of breath. He was recently seen for a kidney stone which spontaneously passed a couple of weeks ago. He did report making lifestyle changes with respect to diet but is not on any fad diets at this time. He merely cuts out the large amount of sugar he was previously taking in. Admission Exam Per Admitting Provider Vital Signs (Past 24 Hours): Last Vital Signs Temp 36.4 C L 08/11/18 10:02 Pulse 80 08/11/18 12:45 Resp 18 08/11/18 12:45 BP 135/72 08/11/18 12:45 Pulse Ox 94 08/11/18 12:45 CONSTITUTIONAL: WNWD, vitals as above, generally well-appearing EYES: PERRL, normal conjuctivae, no scleral icterus ENT: MMM NECK: trachea midline, no lymphadenopathy RESPIRATORY: clear to auscultation bilaterally, no crackles, rales or wheezes, normal respiratory effort CARDIOVASCULAR: regular rate and rhythm, S1 and 2 heard without murmurs, gallops or rubs, no JVD, no peripheral edema, no carotid bruits GASTROINTESTINAL: hypoactive bowel sounds, soft, nontender,nondistended, lower midline (suprapubic) incisional hernia is present and reducible. MUSCULOSKELETAL: strength 5/5 throughout, head is normocephalic and atraumatic , neck supple SKIN: warm and dry NEUROLOGIC: No facial palsy, no dysarthria. CN 2-12 grossly intact, no sensory deficit, normal cognition, normal speech, no ogross focal deficits. PSYCHIATRIC: alert cooperative and oriented to person, place and time. Principal Diagnosis SMALL BOWEL OBSTRUCTION Discharge Exam Vital Signs (Past 24 Hours): Last Vital Signs Temp 36.7 C 08/14/18 23:18 Pulse 68 08/14/18 23:18 Resp 14 08/14/18 23:18 BP 145/88 H 08/14/18 23:18 Pulse Ox 94 08/14/18 23:18 Physical Exam: General- oriented x 3, not in distress, speaks in sentences with no effort or accessory muscle use Eyes- anicteric Neck- no JVD Lungs- clear BS bilaterally, no rales/wheezes Heart- normal rate, regular rhythm; no murmurs Abdomen- normal bowel sounds, nondistended, soft, nontender Extremities- no pretibial edema, no calf tenderness Neuro- alert, oriented x 3; no gross focal neurologic deficits Skin- warm & dry Discharge Data Allergies Allergy/AdvReac Type Severity Reaction Status Date / Time No Known Allergies Allergy Unknown Verified 08/11/18 10:14 Consultations 08/11/18 11:35 ED Decision to Admit Stat 08/11/18 13:22 Consult Case Management - Discharge Planning Routine Consult General Surgery Routine Ordered Studies 08/11/18 10:17 CT abd pelvis wo con Stat CT abd pelvis wo con CT DOSE: 670.72 mGy.cm HISTORY: Pain. Flank pain. severe abd pain. faint back pain diff then previou TECHNIQUE: Multiaxial CT images of the abdomen and pelvis were performed without contrast. A dose lowering technique was utilized adhering to the principles of ALARA. COMPARISON STUDY: 07/18/2018 FINDINGS: Lung bases are clear. Liver spleen and pancreas are unremarkable. Kidneys are improved in appearance compared to the prior study. Perinephric changes on the left procedure described are no longer present. Ventral hernia is unchanged. There is moderate fluid-filled distention of loops of small bowel within the low central abdomen and left lower quadrant. There is a smooth transition in diameter in the left central mid pelvis although an obstructing lesion is not seen. Bladder is midline. Postoperative changes consistent with a prior partial sigmoid resection is again noted. There is no evidence for abscess or collection. There is no significant colonic distention. IMPRESSION: 1. Partial distal small bowel obstruction with a transition point within the left central pelvis. 2. Etiology is unclear as there is no evidence for an obstructing lesion. 3. Urinary tracts are now considered normal and improved from the prior study. Hospital Course (1) SBO (small bowel obstruction): Likely secondary to adhesions with no transition point identified on CT scan. - evaluated by General Surgery - conservative management recommended - given IV fluids, laxatives - diet advanced gradually, tolerated well (+) BMs Gen Surg consulted- discussed with Dr. Dorsey patient is cleared for discharge - ff up with PCP Dr. Garcia 08/20/18 (2) COPD (chronic obstructive pulmonary disease): Stable, not in exacerbation. -continue daily Spiriva and as needed albuterol. (3) Hyponatremia: resolved (4) Smoker: Encouraged to quit, nicotine patch provided. (5) DVT prophylaxis: SCDs to the thigh Full code Disposition d/c home ff up with PCP Dr. Garcia 08/20/18 Total Time Total Time Spent Total Time Spent (In Minutes): 30 minutes Discharge Plan Discharge Items Patient Disposition: Home - Self-Care Reason For Visit: SMALL BOWEL OBSTRUCTION Discharge Diagnosis: SMALL BOWEL OBSTRUCTION Discharge Goals: Diagnostic testing and Therapeutic intervention Activity: Resume your previous activity Non-emergency contact: Primary Care Provider Call non-emergency contact if: you have any medication questions, your symptoms worsen, your pain is not controlled, your pain is worsening, your pain is unusual for you, your pain is concerning for you and you have a fever Follow-up/Referrals: Pedro Luis Garcia MD [Primary Care Provider] - 08/20/18 11:05 am Diet: Regular Addtl Provider Instructions: SOFT DIET Prescriptions: New sennosides-docusate sodium [Senna with Docusate Sodium] 8.6-50 mg Tablet 1 tab PO QAM 7 Days Qty: 7 RF: 1 Continue garlic [garlic oil] 1,000 mg Capsule 1,000 mg PO QAM RF: 0 vitamin B complex [B-Complex] Tablet 1 tab PO QAM RF: 0 multivitamin with minerals [Multiple Vitamin-Minerals] Tablet 1 tab PO QAM RF: 0 s-adenosylmethionine [Michelet-E] 400 mg Tablet 800 mg PO QAM RF: 0 omega [id number] oil [Fish Oil] 1,000 mg (120 mg-180 mg) Capsule 3,000 mg PO QAM RF: 0 lactobacillus combination no.4 [Probiotic] 3 billion cell Capsule 1 cap PO QAM RF: 0 aspirin 325 mg Tablet,Delayed Release (Dr/Ec) 325 mg PO 3XWK RF: 0 albuterol sulfate [Ventolin HFA] 90 mcg/actuation HFA aerosol inhaler 2 puff Inhalation Q4 PRN (Reason: Shortness Of Breath Or Wheezing) RF: 0 tiotropium bromide [Spiriva Respimat] 2.5 mcg/actuation mist 2 puff Inhalation QAM RF: 0 naproxen sodium 220 mg Capsule 440 mg PO UD PRN (Reason: Pain) RF: 0 Stand-Alone Forms: [facility] Discharge Orders: Discharge Order (Routine); Ordered 08/15/18 Ordered By: Camron Horne Admission Data Admit Date/Time: 08/11/18 12:15 Attending Provider: Camron Horne Admit Provider: Ivis Robertson Primary Care Provider: Pedro Luis Garcia Other Providers: Ivis Robertson ; Maurice Dorsey ; Kirti Rebolledo ; Thuy Ang ; Freddie Hills ; Caio Peng ; Dafne Gonzalez ; Isaiah Clark ; Brendan Haji ; Vy Laird ; Narayan Colon ; Katerina Rodriguez ; Fernanda Conn ; Rodney Carrillo Jr ; Clifton Guadalupe ; Bashir Glynn Service: Surgical Services Other Interventions: Discharge Summary Assessment (RN) Last Done: 08/15/18 14:29 DC Date/Time DO NOT enter until pt leaves facility: 08/15/18 14:58
== END 2018-08-15 14:58 | disposition home or self-care (01) | DRG 389 ==
LOC: ED 09:52 → SUATTDRO 12:15 → 3N 12:15